=== PATIENT | female | born 1970 | race Asian ===

== ENCOUNTER 2017-09-01 07:30 | Emergency (ER) | payer OTHER ==
[2017-09-01 07:45] VITALS: BP 130/73
--- NOTE | 2017-09-01 08:51 | UC ---
Alex Fraire Jennifer, [facility] 09[facility]01/17 at 0803 . Complaint Female HPI - HPI Summary HPI Summary: In Room Note: The patient is a 47 year old female who complains of burning and abdominal pain upon urination for the past two days. She reports she has a history of urine infection that was a long time ago but denies any problems with her kidneys. The patient additionally complains of subjective fever, increased frequency of urination, two episodes of vomiting and decreased appetite yesterday, diarrhea today, a little headache, and dizziness. 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 She denies problems with breathing and chest pain. Note: Vital signs stable. Afebrile. Patient is Urgent/Emergent. BP elevated due to current condition w/o HTN in past medical history. Pulse ox 97. Pain 3/ 10. Review of pt visit non-contributory to current complaint. Nurse's Note:pt started with burning urinination and frequency yesterday. alos c /o nausea, vomited a couple of times yesterday and then started having loose stools. - History Of Current Complaint Chief Complaint: UCGI Stated Complaint: VOMITING/DIARRHEA Time Seen by Provider: 09/01/17 07:48 Hx Obtained From: Patient Hx Last Menstrual Period: one week ago Onset/Duration: Sudden Onset, Lasting Days - 2 days, Still Present Timing: Constant Severity Initially: Mild Severity Currently: Mild Pain Intensity: 3 Pain Scale Used: 0-10 Numeric Character: Burning - Dysuria and abdominal pain upon urination Aggravating Factor(s): Nothing Alleviating Factor(s): Nothing Associated Signs And Symptoms: Positive: Negative - Problems with breathing, chest pain, Fever, Back Pain - Sometimes from work, Nausea, Vomiting(# Of Episodes =) - 2 - Allergies/Home Medications Allergies/Adverse Reactions: Allergies Allergy/AdvReac Type Severity Reaction Status Date / Time No Known Allergies Allergy Verified 05/29/15 07:44 PMH/Surg Hx/FS Hx/Imm Hx Previously Healthy: Yes - Blood pressure was high at last PCP visit. NEG: DM. - Surgical History Surgical History: None - Family History Known Family History: Positive: Hypertension - Sister Negative: Diabetes - Social History Occupation: Employed Full-time - Housekeeping Alcohol Use: None Substance Use Type: None Smoking Status (MU): Never Smoked Tobacco Have You Smoked in the Last Year: No Review of Systems Constitutional: Fever, Other - Decrease appetite Gastrointestinal: Abdominal Pain, Vomiting, Diarrhea Genitourinary: Dysuria, Frequency Neurological: Headache, Other - Dizziness All Other Systems Reviewed And Are Negative: Yes Physical Exam - Summary Physical Exam Summary: Appearance: The patient is well-appearing, is in no pain distress, and is well- nourished. Eyes: Conjunctiva are clear. ENT: The hearing is grossly normal, the pharynx is normal, and the TMs are normal. There is no muffled or hoarse voice. Neck: The neck is supple and there is no lymphadenopathy. Respiratory: The chest is nontender. The lungs are clear, there are normal breath sounds, and there is no respiratory distress. Cardiovascular: Heart is regular rate and rhythm. There is no murmur. Abdomen: The abdomen is soft. QUESTIONABLE CVA TENDERNESS VS. THORACIC MUSCLE STRAIN. MILD SUPRAPUBIC TENDERNESS TO PALPATION, NEGATIVE PERITONEAL SIGNS. There is no organomegaly. Bowel sounds: present Musculoskeletal: Strength is intact. The patient moves all extremities. Neurological: The patient is alert. Psychological: The patient displays age appropriate behavior Skin: Negative for rashes. Triage Information Reviewed: Yes Vital Signs: Initial Vital Signs Temp 98.0 F 09/01/17 07:39 Pulse 91 09/01/17 07:39 Resp 17 09/01/17 07:39 BP 130/73 09/01/17 07:39 Pulse Ox 97 09/01/17 07:39 Vital Signs Reviewed: Yes Complaint Female Dx - Course Course Of Treatment: Patient is a 47 year old female who complains of abdominal discomfort, sounds like dysuria, as well as frequency for the last two days. She works at [employer] (formerly [employer]) and has chronic back discomfort so was not clear if CVA tenderness or not. However, I will treat her for 7 days rather than 3 days due to early possibility of pyelonephritis. My probable diagnosis is cystitis. Patient has been given an antibiotic because findings on physical examination and health history. The risks and benefits of antibiotic treatment have been discussed and patient has voiced understanding of these risks including the possibility of developing clostridium difficile enterocolitis. Medications have been included in the original chart and reviewed. - Differential Dx/Diagnosis Differential Diagnosis/HQI/PQRI: Appendicitis, Renal Colic, Urinary Tract Infection Provider Diagnoses: Urinary Tract Infection: cystitis Discharge - Sign-Out/Discharge Documenting (check all that apply): Discharge - Discharge Plan Condition: Stable Disposition: HOME Prescriptions: Sulfamethox/Trimethoprim DS* [Bactrim DS 800/160 TAB*] 1 tab PO BID #14 tab MDD 2 Patient Education Materials: Urinary Tract Infection in Women (ED) Forms: *Work Release Referrals: Philomena Elmore MD [Primary Care Provider] - Additional Instructions: WE DISCUSSED: You have a urinary tract infection. Take your antibiotic twice a day for 7 days. No work today. Rest, and drink lots of fluids. Call us or go to ED if you have increased pain or temperature or if you are not getting better in 2 days. - Billing Disposition and Condition Condition: STABLE Disposition: HOME The documentation as recorded by the Alex lord Jennifer accurately reflects the service I personally performed and the decisions made by me, Jace Prater MD.
== END 2017-09-01 08:12 | disposition home or self-care (01) ==
LOC: UCEAST 07:30
DX: N30.90 Cystitis, unspecified without hematuria (principal)
CPT/HCPCS: 81003; 87086; 99212; G0463

== ENCOUNTER 2018-08-23 07:02 | Emergency (ER) | payer OTHER ==
[2018-08-23 07:15] VITALS: BP 130/78
--- NOTE | 2018-08-23 07:16 | UC ---
UC General HPI - HPI Summary HPI Summary: 48 yo female c/o approx one week + cough, mild sore throat, mild fever initially not now. Cough wakes her up at night. No rash. No GI issues. + sick contact. No issures reported. No h/a, ear pain. + tired. Cough occasionally productive, color (?). No cp / palpitations. Notes hx heart murmur, has known about it for several years, scheduled for upcoming further testing (echocardiogram?). - History of Current Complaint Chief Complaint: UCGeneralIllness Stated Complaint: COUGH CONGESTION Time Seen by Provider: 08/23/18 07:13 Hx Obtained From: Patient Hx Last Menstrual Period: 08/23/18 Pain Intensity: 0 - Allergy/Home Medications Allergies/Adverse Reactions: Allergies Allergy/AdvReac Type Severity Reaction Status Date / Time No Known Allergies Allergy Verified 08/23/18 07:09 PMH/Surg Hx/FS Hx/Imm Hx Previously Healthy: Yes - Surgical History Surgical History: Yes Surgery Procedure, Year, and Place: tubal ligation - Family History Known Family History: Positive: Hypertension - Sister Negative: Diabetes - Social History Alcohol Use: None Substance Use Type: None Smoking Status (MU): Never Smoked Tobacco Have You Smoked in the Last Year: No Review of Systems All Other Systems Reviewed And Are Negative: Yes Constitutional: Positive: Negative, Other - see hpi Skin: Positive: Other - see hpi Eyes: Positive: Other - see hpi ENT: Positive: Other - see hpi Respiratory: Positive: Other - see hpi Cardiovascular: Positive: Other - see hpi Gastrointestinal: Positive: Other - see hpi Motor: Positive: Other - see hpi Neurovascular: Positive: Other - see hpi Musculoskeletal: Positive: Other: - see hpi Neurological: Positive: Other - see hpi Psychological: Positive: Other - see hpi Is Patient Immunocompromised?: No Physical Exam Triage Information Reviewed: Yes Appearance: Well-Appearing, Well-Nourished Vital Signs: Initial Vital Signs Temp 97.5 F 08/23/18 07:10 Pulse 57 08/23/18 07:10 Resp 18 08/23/18 07:10 BP 130/78 08/23/18 07:10 Pulse Ox 99 08/23/18 07:10 Vital Signs Reviewed: Yes Eye Exam: Normal ENT: Positive: Pharyngeal erythema - mild post pharyng redness, c/w cough. No sores / exudates noted. Uvula midline., TM dull Neck exam: Normal Neck: Positive: Supple, Nontender, No Lymphadenopathy Respiratory Exam: Other - + ronchorus cough, with faint exp wheeze. Bilat. No rtx. BS equal. Respiratory: Positive: Chest non-tender, No respiratory distress, No accessory muscle use Cardiovascular Exam: Other - HR regular. +syst m at LSB approx 2/6 Cardiovascular: Positive: RRR, Pulses Normal, Tachycardia Abdominal Exam: Normal Abdomen Description: Positive: Nontender Bowel Sounds: Positive: Present Musculoskeletal Exam: Normal - moves x 4 exts, gait ok Neurological Exam: Normal - grossly nonfocal Psychological Exam: Normal - conversing easily and appropriately Skin Exam: Normal - no visible or reported rash Course/Dx - Course Course Of Treatment: S/s c/w bronchitis with wheeze. 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 Work note until Wednesday. Questions answered as posed. F/u PCP / specialist as planned. - Diagnoses Provider Diagnosis: Bronchitis, Wheeze Discharge - Sign-Out/Discharge Documenting (check all that apply): Patient Departure All imaging exams completed and their final reports reviewed: No Studies - Discharge Plan Condition: Stable Disposition: HOME Prescriptions: Azithromyxin KESHIA (NF) [Z-Keshia (Zithromax) 250 mg tabs #6] 2 tab PO .TODAY, THEN 1 DAILY #6 tab Benzonatate CAP* [Tessalon 100 MG CAP*] 100 mg PO TID PRN #30 cap PRN Reason: Cough Patient Education Materials: Acute Bronchitis (ED), Bronchospasm (ED) Forms: *Work Release Referrals: Philomena Elmore MD [Primary Care Provider] - Additional Instructions: Follow up primary care physician, per routine. Please seek medical attention for worse or new problems. - Billing Disposition and Condition Condition: STABLE Disposition: Home
[2018-08-23] MEDS ORDERED: Albuterol HFA INHALER* 8 gm MDI INH ONE (07:23)
== END 2018-08-23 07:40 | disposition home or self-care (01) ==
LOC: UCEAST 07:02
DX: J40 Bronchitis, not specified as acute or chronic (principal); R06.2 Wheezing
CPT/HCPCS: 99213; A9270-GY; G0463